=== PATIENT | male | born 1955 | race Caucasian/White ===

== ENCOUNTER → 2023-07-25 13:41 | Outpatient (CLI) | payer MEDICARE, SELFPAY ==
--- NOTE | 2023-07-25 13:43 | DI.RAD.S_ITS ---
PROCEDURE: XR HIP W PEL IF DONE LT 2V INDICATIONS: Left hip pain TECHNIQUE: AP pelvis with lateral view(s) of the left hip(s). COMPARISON: None. FINDINGS: Bones: No fractures or dislocations. Mild asymmetric left femoroacetabular joint space loss with trace spur formation. Pelvic ring appears intact. No suspicious bony lesions. Soft tissues: The visualized bowel gas pattern is normal. No suspicious soft tissue calcifications. Vasectomy clips. IMPRESSION: Mild asymmetric left hip joint degeneration. Dictated by: Georgina Dinero M.D. on 07/25/2023 at 16:53 Approved by: Georgina Dinero M.D. on 07/25/2023 at 16:53
== END ==
PROVIDERS: Referring Provider Nurse Practitioner Family; Visit Provider Nurse Practitioner Family
DX: M16.12 Unilateral primary osteoarthritis, left hip (principal); M25.552 Pain in left hip
CPT/HCPCS: 73502